=== PATIENT | male | born 1960 | race Caucasian/White ===

== ENCOUNTER → 2022-05-10 | Outpatient (CLI) | payer OTHER, SELFPAY ==
--- NOTE | 2022-05-10 | ASPOS_PTH ---
PATIENT: LEATHA ARENAS LOC: [facility] U#:[id number] AGE/SX: 61/M ROOM: RE05/10/[address]: Dr. Trevon Begum MD : 1960 BED: DIS: 05/10/2022 SPEC #: [id number] RECD: 05/10/22 10:58 STATUS: ROBB REJuan #: [id number] VIVIANA: 05/10/22 00:[address]: Trevon Begum DEPT: CYTOLOGY RECD BY: Blaine Suazo ENTERED: 05/10/22 10:58 SP TYPE: ASP HERE OTHR DR: Dr. Jonny De MD Tissues: Neck, NOS Procedures: Surgery Specimen Level IV Cytology Other Fine Needle Asp on Site HEADER OPERATION: Fine needle aspiration right neck mass PRE-OP DIAGNOSIS: Right neck mass TISSUE SUBMITTED: Right neck mass DIAGNOSIS CYTOLOGY Fine needle aspiration, right neck mass (smears and cell block): Macrophages consistent with benign cyst contents. See comment. AM:bell 05/11/2022 COMMENT The specimen is evaluated at the time of FNA by Dr. Ahumada. Immediate Evaluation = Macrophages consistent with benign cyst contents. Rare benign epithelial cells with associated lymphocytes are seen in sections of the cell block. A branchial cleft is favored. Clinical correlation is suggested. Case has been reviewed in consultation with Dr. Rawls who concurs with the above diagnosis. IDC:SJ. CYTOLOGY STUDY Slides are reviewed. CYTOLOGY GROSS Received is 5 ml of clear yellow fluid labeled with the patient's name, and designated right neck mass. Three imprints and two paps are made from the submitted fluid and the rest is added to CytoLyt for cell block preparation. Submitted for cytology study. / AM:bell 05/10/2022 TC:5 CPT: 30185, 52140, 78990, 83705
== END | disposition home or self-care (01) ==
LOC: LAB 09:11
PROVIDERS: PCP Family Medicine; Referring Provider Otolaryngology Otolaryngology/Facial Plastic Surgery; Visit Provider Otolaryngology Otolaryngology/Facial Plastic Surgery
DX: R22.1 Localized swelling, mass and lump, neck (principal)
CPT/HCPCS: 10021; 88161; 88305

== ENCOUNTER → 2022-07-05 | Outpatient (CLI) | payer OTHER, SELFPAY ==
--- NOTE | 2022-07-05 14:50 | ST.MBS ---
Modified Barium Swallow - Patient Information Study Date: 07/05/22 Study Time: 13:00 Direct Billable Minutes: 65 Total Minutes procedure & reportin Diagnosis: R tonsillar SCC (C09.9) Referring Physician: Bruno Li Reason for Referral: Objectively assess swallow function, risk for aspiration, and determine recommendations for least restrictive diet textures and compensatory strategies to improve safety of swallow. 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 Radiation is planned for 6-7 weeks, likely beginning on 07/11/2022 with chemotherapy, as well. He is planned for PEG tube and port placement 07/07/2022. Current Diet Ordered: Regular textures / Thin liquids Dentition: WNL Mental Status: WNL Respiratory Status: Oxygenating on Room Air - Penetration-Aspiration Scale Penetration-Aspiration Scale: OBJECTIVE ASSESSMENT OF SWALLOW FUNCTION (QUANTITATIVE ? PER TRIAL): PENETRATION / ASPIRATION SCALE (YU): 1 = does not enter airway 2 = enters airway/above vocal folds/ejected 3 = enters airway/above vocal folds/not ejected 4 = enters airway/contacts vocal folds/ejected 5 = enters airway/contacts vocal folds/not ejected 6 = enters airway/below vocal folds/ejected 7 = enters airway/below vocal folds/not ejected despite effort 8 = enters airway/below vocal folds/no effort VIDEOFLOROSCOPIC SCALE SCORE (YU): Grade I = aspiration of material that has penetrated into the laryngeal vestibule, intact cough reflex Grade II = aspiration < 10 % of the bolus, intact cough reflex Grade III = aspiration of < 10 % of the bolus, reduced cough reflex or aspiration of > 10 % of the bolus, intact cough reflex Grade IV = aspiration of > 10 % of the bolus, reduced cough reflex - Penetration-Aspiration Scale Score Thin Liquid via teaspoon Result: 1= does not enter airway Thin Liquid via teaspoon Trial 2 Result: 4= enters airway/contacts vocal folds/ejected Thin Liquid via small single sip from cup Result: 1= does not enter airway Thin Liquid via sequential sips from cup Result: 1= does not enter airway [place] Thick Liquid via small single sip from cup Result: 1= does not enter airway Honey Thick Liquid via small single sip from cup Result: 1= does not enter airway Pudding via teaspoon with esophageal screen Result: 1= does not enter airway Thin Liquid via single sip from straw with esophageal screen Result: 1= does not enter airway 1/2 Cookie Result: 1= does not enter airway - Oral Phase Labial Seal: No Labial Escape Tongue Control During Bolus Hold: Cohesive bolus between tongue to palatal seal Bolus Preparation/Mastication: Timely and efficient chewing and mashing Bolus Transport/Lingual Motion: Brisk tongue motion Oral Residue: Residue collection on oral structures - cookie - Pharyngeal Phase Initiation of Pharyngeal Swallow: Bolus head in valleculae Soft Palate Elevation: No bolus between soft palate and pharyngeal wall Laryngeal Elevation: Partial superior movement thyroid cart/partial apprx aryt-epig petiole Anterior Hyoid Excursion: Partial anterior movement Epiglottic Movement: Complete inversion Laryngeal Vestibule Closure at Height of Swallow: Incomplete; narrow column of air/contrast in laryngeal vestibule Pharyngeal Stripping Wave: Present - complete Pharyngoesophageal Segment Opening: Parital distension and partial duration; parital obstruction of flow Tongue Base Retraction: Trace column of contrast between tongue base & post. pharyngeal wall Pharyngeal Residue: Trace residue within or on pharyngeal structures - Esophageal Phase Esophageal Clearance: Esophageal retention w/ retrograde flow below pharyngoesophageal seg. - trace retrograde flow of honey thick liquids, esophageal retention of pudding - Diagnosis/Impression Diagnosis: Mild pharyngeal phase dysphagia (R13.13) Impression: The oral phase is primarily marked by... -Mild cookie residue after the swallow, which he independently cleared with use of second swallow. The pharyngeal phase is primarily marked by... -Mildly decreased airway closure during the swallow due to decreased anterior hyoid excursion and decreased laryngeal elevation. No aspiration observed during the study. Trace laryngeal penetration to the vocal folds with full ejection with second trial of thin liquids by tsp. -Mildly decreased UES opening/duration. Only trace pharyngeal residues during the swallow. The esophageal phase is primarily marked by... -Esophageal retention of pudding in mid esophagus, which improved when provided thin liquid wash. -Minimal retention of honey thickened liquid in upper esophagus with trace retrograde flow through the upper esophageal sphincter. - Recommendations Diet: Regular Textures, Thin Liquids Compensatory Strategies: Small Bites, Small Sips, Slow Rate, Alternate bites/solids and sips/liquids, Sitting upright, Remain sitting upright for 30 minutes after PO intake Recommend Repeat Modified Barium Swallow: Yes - 3 months s/p radiation to monitor risk for worsening dysphagia s/p radiation treatment Need for Skilled Speech Therapy Services: Yes Comment: Will recommend the patient for continued outpatient dysphagia therapy to address mild deficits in pharyngeal swallow function. Will recommend the patient for oropharyngeal strengthening to laryngeal elevation, hyoid excursion, and duration of UES opening (CTAR, Jaimee, effortful breath hold and swallow). The patient would benefit from education re: recommended compensatory strategies. He also would benefit from ongoing assessment of diet tolerance and aspiration risk during radiation treatment. Education Completed: 1. Described result of evaluation., 7. Pt requires further education on strategies & risks. - Status Active ST Patient: Active - Contact Information [facility] Speech Therapy:: Nikki Alcantraa M.A. [facility] Speech-Language Pathologist [facility] [address] [place] [address] [email or web address] [phone] 07/05/22 15:15
== END | disposition home or self-care (01) ==
LOC: RAD 13:00
PROVIDERS: PCP Family Medicine; Referring Provider Radiology Radiation Oncology; Visit Provider Radiology Radiation Oncology
DX: C09.9 Malignant neoplasm of tonsil, unspecified (principal)
CPT/HCPCS: 74230; 92611

== ENCOUNTER 2022-07-07 07:34 | Day surgery (SDC) | payer OTHER, SELFPAY ==
[2022-07-07] VITALS (7 sets, daily range): BP systolic 92–150; BP diastolic 64–74; PULSE 74–86; RESP 16–18; TEMP 36.2–37; O2SAT 92–98; BMI 35.9
[2022-07-07] MEDS: Lactated Ringers 1,000 ML 15 ML IV (08:13)
--- NOTE | 2022-07-07 08:19 | HP.PCM_ITS ---
History and Physical Date of Admission: 07/07/22 Date of Service:? 06/28/22 MR#: [id number] Acct: [id number] Name:? LEATHA ARENAS Rep #: [id number] : 1960 ? ? Provider: Dr. Shannon Drew MD Age/Sex:? 62/M ? ? Location: [facility] Status: Signed Intake Vital Signs ? 06/28/2209:06 Height 5 ft 11 in Weight: 264 lb BMI 36.8 BP 165/91 H Blood Pressure Location Rt brachial Position Sitting Respiration 17 Pulse 77 Pulse Source Monitor Temp 97.4 F L Temp Source Temporal Pulse Oximetry (%) 98 Oxygen Delivery Method room air Intake Visit Reasons:?PORT & PEG PLACEMENT Chief Complaint: Port & Peg Placement [place] Required: No Is patient in pain?: No Allergies No Known Allergies Allergy (Unverified 06/28/22 09:10) Medications ketoconazole 2 % shampoo 1 applic topical 2XW 06/24/22 [History Confirmed 06/05 01/23] losartan 100 mg tablet 100 mg PO DAILY 06/24/22 [History Confirmed 06/28/22] meloxicam 7.5 mg tablet 7.5 mg PO DAILY 06/24/22 [History Confirmed 06/28/22] spironolactone 25 mg tablet 25 mg PO DAILY 06/24/22 [History Confirmed 06/28/22] acetaminophen 325 mg capsule (Tylenol) 325 mg PO Q6H PRN 06/28/22 [History Confirmed 06/28/22] PFSH Medical History? COVID HTN (hypertension) Prostate cancer Psoriasis Surgical History? H/O hernia repair H/O knee surgery Family History?(Updated 06/28/22 @ 09:05 by Margaux Monday) Father Heart disease Hypertension High cholesterolMother CancerSister Cancer ?? ? skin Seizures Social History? household members:? spouse and children number of children:? 2 current occupational status:? 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 No pets and animals:? Yes Smoking Status:? Former smoker alcohol intake:? current alcohol intake frequency: holidays/special occasions only substance use type:? does not use HPI HPI Surgical H&P: Yes HPI: 62-year-old male presents for port and PEG placement.? Patient was diagnosed with a right tonsillar squamous cell carcinoma.? Patient is planning to get chemo and radiation starting 07/11/2022.? Patient currently has a large right upper neck mass. ROS General General: No weight change, appetite, fatigue, colon cancer or breast cancer HEENT HEENT: No difficulty swallowing, eye injury, eye surgery, swollen glands or hoarseness Endo Endocrine: No thyroid disease, diabetes mellitus, thyroid cancer, Hair loss, heat intolerance or cold intolerance Skin Skin: Yes rash; No changing moles Musc Musculoskeletal: No back problems, arthritis, rheumatoid arthritis, gout or joint pain Cardio Cardiovascular: Yes high blood pressure; No murmur, pacemaker, heart disease, atrial fibrillation, heart attack, heart stent, palpitations, shortness of breat with exertion or chest pain Psych Psychiatric: No depression, anxiety or hearing voices Resp Respiratory: No shortness of breath, Yes sleep apnea, Yes cough, No COPD, No asthma, No emphysema and No wheezing Gastro Gastrointestinal: No abdominal pain, No nausea or vomiting, No diarrhea, No constipation, No blood in stool, No acid reflux, No hemorrhoids, No ulcers, No gallbladder problem and No black,tarry stools Taye Hematologic: No blood thinners, No blood disorders, No bleeding, No anemia and No blood clots Neuro Neurologic: No numbness and No tingling Exam Const General: cooperative, healthy appearing and no acute distress [facility] Head: normal to inspection Neck Other: Large right upper neck mass, mass does not extend down to above the clavicle where I would plan for incision to access internal jugular. Chest Other: Palpation of upper chest normal.? Resp Effort & Inspection: normal respiratory effort Cardio Rate: regular rate GI Inspection: non-distended Palpation: soft, no guarding, no hernias and nontender Skin Other: Patient does have psoriasis lesions on his chest/abdomen. Neuro General: patient oriented x3 Extrem General: no clubbing, cyanosis or edema Psych Affect: normal affect Assessment and Plan Assessment and Plan (1) Encounter for fitting and adjustment of vascular catheter: ?Status:?Acute (2) Malnutrition: ?Status:?Acute (3) Right tonsillar squamous cell carcinoma: ?Status:?Acute Plan I have discussed above with the patient- Port-a-Cath placement. Patient has been counseled as to the risks/benefits of the procedure. I have explained the risks of the surgery, including but not limited to: infection, bleeding, injury to any blood vessels/nerves, injury to lungs (such as pneumothorax or hemothorax and need for chest tube), not having any access, nonfunctioning of port due to thrombosis, infection of port, etc.? the patient understands and agrees to proceed. I have answered all the patient's questions to the patient?s satisfaction and the patient has no further questions. I have discussed the above with the patient. I have offered the patient EGD with PEG placement I have explained the risks/benefits of the procedure and described the procedure.? I have discussed the risks with the patient, including but not limited to:? infection, bleeding, perforation of the GI tract requiring emergency surgery, inability to complete the procedure, injury to any internal organs, complications of anesthesia, etc. - the patient understands and agrees to proceed. I have answered all the patient's questions to the patient's satisfaction and the patient has no further questions. Shannon Drew M.D. Pager: [phone] [facility] [address] [place] [address], [address] [place] [address] Office: [phone] Coding Level of Care Code Off vis,new,level 3 Diagnoses Encounter for fitting and adjustment of vascular catheter? Z45.2 Malnutrition? E46 Right tonsillar squamous cell carcinoma? C09.9 06/28/22 0935 <Electronically signed by Shannon Drew MD> Date Shannon Drew MD
[2022-07-07] MEDS: Bupivacaine 0.25%-Epi/Pf 1:200,000 10 ML (09:30)
--- NOTE | 2022-07-07 09:56 | RAD_ITS ---
STUDY: X-RAY CHEST REASON FOR EXAM: Male, 62 years old. Port -- pacu TECHNIQUE: Single AP portable view of the chest. COMPARISON: None. FINDINGS: A right-sided margo catheter has been placed. The tip is in the midportion of the superior vena cava. EKG electrodes are seen. The lungs are clear and expanded. There is no demonstrated pleural abnormality. Normal size heart. Normal mediastinum and maría elena. Normal visualized pulmonary arteries. Normal visualized aortic arch and descending thoracic aorta. Normal visualized thoracic spine. Normal visualized ribs, clavicles, and shoulders. There is no demonstrated abnormality of the visualized soft tissue structures of the upper abdomen. RAD/CXR for Line Placement IMPRESSION: The tip of the right portacatheter is in the midportion of the superior vena cava. Electronically Signed: Yong Carpio MD at 10:39 EDT ,
--- NOTE | 2022-07-07 09:57 | PCM.OPRPT ---
Report of Operation Date of Procedure: 07/07/22 Pre-Operative Diagnosis: Z45.2, tonsillar squamous cell carcinoma Post-Operative Diagnosis: Same Surgery/Procedure Performed:: 1. Insertion of right IJ Port-A-Cath 2. Use of fluoroscopy 3. Use of ultrasound. Surgeon: Shannon Drew Type of Anesthesia: Local MAC Anesthesiologist: Leland Horn Special Medications: Ancef 3 g IV x1 Specimen's removed: None Estimated Blood Loss (mL): < 10 cc Description of Procedure: After informed consent was given, the patient was brought to the operating room and placed in the supine position. Appropriate time out protocol was followed. Patient was then given IV conscious sedation for anesthesia. The patient's right upper chest and neck were then prepped with a surgical skin preparation and sterile surgical drapes were placed. After proper landmarks were ascertained, the skin at the upper right chest area was then infiltrated with 0.25% Marcaine with epinephrine. A needle trocar was then inserted into the right internal jugular vein with ultrasound guidance-multiple vessels were viewed with u/s and the right IJ was chosen-- and there was good aspiration of venous blood. A wire was then threaded into the needle trocar and this was visualized under fluoroscopy to ensure that the wire was in the superior vena cava. Once this was done, then the needle trocar was removed. A small skin madai was made with an 11 blade knife at the wire entrance site. The dilator with the introducer sheath attached was then placed over the wire into the right internal jugular vein via the Seldinger technique and this was visualized under fluoroscopy. The dilator and sheath were in proper position as visualized by fluoroscopy. A subcutaneous pocket was then created caudad to the catheter insertion site. A transverse skin incision was made after the skin and subcutaneous tissues were infiltrated with local anesthetic. Blunt dissection was then used to create a space large enough for placement of the subcutaneous port. The catheter was then tunneled into the subcutaneous pocket. The wire and dilator were then removed. The catheter was then threaded into the introducer sheath and was positioned with its tip at the junction of the superior vena cava and the right atrium as visualized under fluoroscopy. The excess catheter was transected. The catheter was then attached to the subcutaneous port using manufacturers guidelines. The catheter was flushed with a heparin saline mixture prior to placement. Hemostasis was carefully controlled with electrocautery. The port was sutured to the subcutaneous fascia using 2-0 Vicryl suture at two sites. The port was then placed in the subcutaneous pocket. The incision were reapproximated with interrupted subdermal 3-0 vicryl sutures. The skin was reapproximated with 3-0 nylon suture in a interrupted fashion. Steristrips were used for reinforcement of the skin closure at IJ insertion site and a sterile opsite dressings were applied. The patient tolerated the procedure well. Grafts/Implants Used: Bard PowerPort isp M.R.I. 6Fr Lot [id number] [id number] Complications none
--- NOTE | 2022-07-07 10:00 | DCINST_ITS ---
Discharge Instructions Procedure Port-A-Cath Diet Discharge Diet: Light diet - advance as tolerated Activity May shower in (days): 5 (Keep port site clean and dry x5 days. Neck incision okay to get wet after 1 day. Okay to lower shower and upper sponge bath. OR okay to taper off port site with a Ziploc bag to shower) Lifting Restrictions: No lifting > 15 pounds for 3 days with the arm on the side of the port Dressing / Incision Call your doctor if your incision/area has: Continuous Slow Oozing, Sudden Increased Bleeding, Increased Pain/ Swelling, Increased Redness, Foul Smelling Discharge and Swelling at the incision site Call your doctor if you observe: Fever of 101 or Higher Change Dressing in: 2 days Additional Dressing/Incision Instructions:: Clean PEG site daily. Flush with tap water daily. Follow Up Care Please Follow Up With: Shannon Drew MD When: In 10 days for permanent suture removal?call office for appointment Test Results: Test results from this visit will be discussed in further detail at your follow- up appointment, if applicable. Discharge Plan Admission Attending Provider: Shannon Drew Primary Care Provider: Jonny De Discharge Orders/Prescriptions Prescriptions: New oxycodone-acetaminophen 5-325 mg tablet 1 - 2 tab PO Q6H PRN (Reason: pain) 3 Days Qty: 10 0RF Continued ketoconazole 2 % shampoo 1 applic topical 2XW losartan 100 mg tablet 100 mg PO DAILY spironolactone 25 mg tablet 25 mg PO DAILY acetaminophen [Tylenol] 325 mg capsule 325 mg PO Q6H PRN (Reason: Pain) lidocaine-prilocaine 2.5-2.5 % cream 1 applic topical ONCE PRN (Reason: port acces) 30 Days Qty: 30 2RF ondansetron 8 mg tablet,disintegrating 8 mg PO Q8H PRN (Reason: nausea and vomiting) Qty: 30 2RF prochlorperazine maleate 10 mg tablet 10 mg PO Q6H PRN (Reason: nausea and vomiting) Qty: 30 2RF Referrals / Follow Up: Jonny De MD [Primary Care Provider] - Disposition Disposition (needs filled in before D/C Order can be placed): Home, Self Care
--- NOTE | 2022-07-07 10:11 | OP.CCLET_ITS ---
07/07/2022 Jonny De Md Re : Upper GI endoscopy procedure for Mars Zamorar Santino This procedure was performed on July. My impressions and recommendations are as follows: Impressions : - Z-line variable, 40 cm from the incisors. - Multiple gastric polyps. - Normal examined duodenum. - An externally removable PEG placement was successfully completed. - No specimens collected. Recommendations : - Discharge patient to home. - Resume previous diet. - Please follow the post-PEG recommendations including: flush PEG daily with 60 ml water and clean site with soap and water daily and dry thoroughly. - Continue present medications. My findings are described in the full procedure note, which is enclosed. If I can be of further assistance, please feel free to contact me at Doctor phone number(s): , Work: . Sincerely, MD Shannon Ward MD 07/07/2022 10:10:56 AM This report has been signed electronically.
--- NOTE | 2022-07-07 10:11 | OP.EGD_ITS ---
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 Complications: No immediate complications. Procedure: Pre-Anesthesia Assessment: - Prior to the procedure, a History and Physical was performed, and patient medications and allergies were reviewed. The patient's tolerance of previous anesthesia was also reviewed. The risks and benefits of the procedure and the sedation options and risks were discussed with the patient. All questions were answered, and informed consent was obtained. Prior Anticoagulants: The patient has taken no previous anticoagulant or antiplatelet agents. ASA Grade Assessment: Per anesthesia. After reviewing the risks and benefits, the patient was deemed in satisfactory condition to undergo the procedure. After obtaining informed consent, the endoscope was passed under direct vision. Throughout the procedure, the patient's blood pressure, pulse, and oxygen saturations were monitored continuously. The Endoscope was introduced through the mouth, and advanced to the second part of duodenum. The upper GI endoscopy was accomplished without difficulty. The patient tolerated the procedure well. Scope In: 9:40:54 AM Scope Out: 9:55:45 AM Total Procedure Duration Time 0 hours 14 minutes 51 seconds Findings: The Z-line was variable and was found 40 cm from the incisors. Multiple less than 5 mm semi-sessile polyps with no bleeding and no stigmata of recent bleeding were found in the gastric fundus. The examined duodenum was normal. The cardia and gastric fundus were normal on retroflexion. The patient was placed in the supine position for PEG placement. The stomach was insufflated to appose gastric and abdominal servin. A site was located in the body of the stomach with good transillumination for placement. The abdominal wall was marked and prepped in a sterile manner. The area was anesthetized with 3 mL of 0.5% lidocaine. The trocar needle was introduced through the abdominal wall and into the stomach under direct endoscopic view. A snare was introduced through the endoscope and opened in the gastric lumen. The guide wire was passed through the trocar and into the open snare. The snare was closed around the guide wire. The endoscope and snare were removed, pulling the wire out through the mouth. A skin incision was made at the site of needle insertion. The externally removable 20 Fr EndoVive Safety gastrostomy tube was lubricated. The G-tube was tied to the guide wire and pulled through the mouth and into the stomach. The trocar needle was removed, and the gastrostomy tube was pulled out from the stomach through the skin. The external bumper was attached to the gastrostomy tube, and the tube was cut to remove the guide wire. The final position of the gastrostomy tube was confirmed by relook endoscopy, and skin marking noted to be 5 cm at the external bumper. The final tension and compression of the abdominal wall by the PEG tube and external bumper were checked and revealed that the bumper was loose and lightly touching the skin. The feeding tube was capped, and the tube site cleaned and dressed. Impression: - Z-line variable, 40 cm from the incisors. - Multiple gastric polyps. - Normal examined duodenum. - An externally removable PEG placement was successfully completed. - No specimens collected. Recommendation: - Discharge patient to home. - Resume previous diet. - Please follow the post-PEG recommendations including: flush PEG daily with 60 ml water and clean site with soap and water daily and dry thoroughly. - Continue present medications. Procedure Code(s): --- Professional --- 82884, Esophagogastroduodenoscopy, flexible, transoral; with directed placement of percutaneous gastrostomy tube Diagnosis Code(s): --- Professional --- K22.8, Other specified diseases of esophagus K31.7, Polyp of stomach and duodenum Z43.1, Encounter for attention to gastrostomy D37.05, Neoplasm of uncertain behavior of pharynx R63.3, Feeding difficulties CPT copyright 2017 [employer]. All rights reserved. The codes documented in this report are preliminary and upon wrinkle chaser review may be revised to meet current compliance requirements. MD Shannon Ward MD 07/07/2022 10:10:56 AM This report has been signed electronically. Number of Addenda: 0 Note Initiated On: 07/07/2022 9:39 AM
--- NOTE | 2022-07-07 10:28 | SUR.PHASEI ---
dr calvert viewed xray, ok to eat and drink
== END 2022-07-07 11:15 | disposition home or self-care (01) ==
LOC: SDC 07:34 → AC 07:35
PROVIDERS: PCP Family Medicine; Referring Provider Family Medicine; Visit Provider Surgery
PROC: (CPT 36561; principal; 2022-07-07 08:30)
PROC: 0DJ08ZZ Inspection of Upper Intestinal Tract, Via Natural or Artificial Opening Endoscopic (ICD-10-PCS; CPT 43235; principal; 2022-07-07 09:40)
DX: Z45.2 Encounter for adjustment and management of vascular access device (principal); Z43.1 Encounter for attention to gastrostomy; E46 Unspecified protein-calorie malnutrition; C09.9 Malignant neoplasm of tonsil, unspecified; K31.7 Polyp of stomach and duodenum; K22.89 Other specified disease of esophagus; I10 Essential (primary) hypertension; E78.00 Pure hypercholesterolemia, unspecified; Z68.36 Body mass index [BMI] 36.0-36.9, adult; Z79.899 Other long term (current) drug therapy; Z86.16 Personal history of COVID-19; Z87.891 Personal history of nicotine dependence
CPT/HCPCS: 36561; 00532; 43246; 71045; 77001; 97802; J7120; J2405

== ENCOUNTER 2022-09-12 19:46 | Emergency (ER) | payer OTHER, SELFPAY ==
[2022-09-12 19:47] VITALS: BP 168/99; PULSE 117; RESP 18; TEMP 35.9; O2SAT 98; BMI 31.4
--- NOTE | 2022-09-12 22:17 | EX.ED.DYSGE1 ---
HPI History of Present Illness Chief Complaint: Edema Informant: patient Onset/Context/Timing Onset: Today Context: Gradual Onset Timing: Continuous Quality: Sore and swollen Location: throat Current Severity: Moderate Maximum Severity: Moderate Worsened by: Coughing swallowing Relieved by: Nothing in particular Associated Symptoms Associated Symptoms: Cold symptoms for the past week Narrative Narrative: Patient has had chemotherapy and radiation for tonsillar cancer. Masses on the right. He has chronically increased secretions and occasional gagging and vomiting as a result of the mass and treatments. That is not new. However, his got sick with a cold, and subsequently after couple days he got the symptoms, he has now been sick for 1 week. Neither one of them have sought evaluation or testing for this. He states today, he started having swelling in his throat that is making it difficult for him to swallow and breathe although he is able to do both and relatively well. At baseline he is drinking liquids and not eating, he has a PEG food and is getting supplemental feeds through that. He is still able to drink fluids. He has myalgias, no dyspnea that he feels is coming from his chest, no fevers or chills. 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 Sleep apnea Tinnitus of both ears Wears glasses Home Medications ketoconazole 2 % shampoo 1 applic topical 2XW 06/24/22 [History Last Taken Unknown] losartan 100 mg tablet 100 mg PO DAILY 06/24/22 [History Last Taken 07/07/22] spironolactone 25 mg tablet 25 mg PO DAILY 06/24/22 [History Last Taken 07/06/22] acetaminophen 325 mg capsule (Tylenol) 325 mg PO Q6H PRN Pain 06/28/22 [History Last Taken 07/06/22] lidocaine-prilocaine 2.5 %-2.5 % topical cream 1 applic topical ONCE PRN port acces 30 days #30 grams 06/30/22 [Rx Last Taken Unknown] ondansetron 8 mg disintegrating tablet 8 mg PO Q8H PRN nausea and vomiting #30 tabs 06/30/22 [Rx Last Taken Unknown] prochlorperazine maleate 10 mg tablet 10 mg PO Q6H PRN nausea and vomiting #30 tabs 06/30/22 [Rx Last Taken Unknown] MAGIC MOUTH WASH (BMX) 180 mL suspension 15 ml PO .qid PRN pain #180 mL 07/20/22 [Rx Last Taken Unknown] docusate sodium 100 mg capsule (Dulcolax Stool Softener (docusate)) 200 mg PO DAILY 08/22/22 [History Last Taken Unknown] guaifenesin 600 mg tablet, extended release 12 hr (Mucinex) 600 mg PO Q12H PRN 08/22/22 [History Last Taken Unknown] nystatin 100,000 unit/mL oral suspension 5 ml PO 4XD 14 days #280 mL 08/24/22 [Rx Last Taken Unknown] silver sulfadiazine 1 % topical cream 1 applic topical BID #85 grams 08/24/22 [Rx Last Taken Unknown] oxycodone 5 mg capsule 5 mg PO Q6H PRN pain 7 days #30 caps 08/26/22 [Rx Last Taken Unknown] prednisone 20 mg tablet 40 mg PO QHS #10 TABLETS 09/12/22 [Rx Last Taken Unknown] Allergy/AdvReac Type Severity Reaction Status Date / Time No Known Allergies Allergy Verified 08/31/22 14:20 Family History Father Heart disease Hypertension High cholesterol Mother Cancer Sister Cancer skin Seizures Surgical History H/O hernia repair H/O knee surgery Social History household members: spouse and children number of children: 2 current occupational status: employed current occupation: IT current occupational exposures/hazards: No pets and animals: Yes Smoking Status: Former smoker alcohol intake: current alcohol intake frequency: holidays/special occasions only substance use type: does not use ROS ROS ED Constitutional Constitutional ED: Denies chills or fever(s) ENT ENT ED: Reports as per HPI, nasal congestion, rhinorrhea, sore throat and throat swelling; Denies sinus pain or sinus pressure Cardiovascular Cardiovascular: Denies chest pain or palpitations Respiratory/Chest Respiratory/Chest: Reports cough; Denies dyspnea Gastrointestinal Gastrointestinal: Reports as per HPI and vomiting; Denies abdominal pain, diarrhea or nausea Genitourinary Genitourinary ED: Denies dysuria or hematuria Musculoskeletal Musculoskeletal: Reports myalgias; Denies neck pain Integumentary Denies abscess or rash Neurologic Neurologic: Denies headache(s), paresthesias or weakness Psychiatric Psychiatric: Denies depression or suicidal thoughts Endocrine Endocrinology: Denies polydipsia or polyuria EXAM Physical Exam Const Vital Signs: 09/12/22 19:47 Temperature 96.7 F L Temperature Source Temporal Pulse Rate 117 H Respiratory Rate 18 Blood Pressure 168/99 H Blood Pressure Mean 122 Pulse Ox 98 Oxygen Delivery Method Room Air Positive well nourished and well developed General Appearance ED: well developed and NAD HEENT Reports moist mucous membranes HEENT Narrative: No trismus. Posterior oropharynx clear without any obvious asymmetry, he does have some mild fullness in the right submandibular area that he states is similar to usual. Normal tongue without elevation or sublingual edema. No stridor. Patient is able to recline back in bed laying his head back without any stridor, hot potato voice, or objective dyspnea. Speaking in full sentences and well-appearing with occasional nonproductive coughing. normocephalic and atraumatic Throat: Negative for posterior oropharynx abnormal Eyes PERRL and EOMs intact bilaterally Neck no lymphadenopathy, supple and no meningeal signs Chest Wall inspection of chest normal and palpation of chest normal Resp normal respiratory effort and clear to auscultation bilaterally Cardio no murmurs Rate: regular rate; Negative for tachycardic Rhythm: regular rhythm GI normal to inspection, nondistended, normoactive bowel sounds and non-tender GI Narrative: Slight amount of minor erythema around PEG insertion site without any purulent discharge or tenderness. Gauze on the area, scant amount of tube feed on it. Neuro oriented x3, CN's II-XII intact bilaterally and no sensory deficits noted Sensorium / Orientation: alert Motor Exam: strength 5/5 throughout Psych mental status grossly normal Skin no rashes or lesions noted Lesions: no lesions Rashes: no rashes MDM MDM MDM Narrative Medical decision making narrative: Send patient for COVID and influenza swabs, they both returned negative. I think putting him on steroids for this would be reasonable, he was given Solu-Medrol here 125 mg IV, and a dose of Benadryl while we waited for the swabs to come back. On reevaluation he did not notice a major difference in the swelling but he is condition has not worsened and I believe he is stable for discharge and not at risk of impending airway impingement/closure. I discussed this with him and his significant other and they are in agreement, we discussed reasons to return, prescribed him a 5-day burst of prednisone 40 mg daily after tonight's dose of Solu-Medrol, and he is comfortable with that overall plan. Discharge Plan Triage Chief Complaint: Edema Other Complaint: General Illness ED Provider: Mohinder Yoo Dx/Rx/DC Orders Clinical Impression: Viral URI with cough, Right tonsillar squamous cell carcinoma, Mucositis due to radiation therapy, Swollen throat Instructions: ED URI, Viral, No Abx (Adult) Prescriptions: New prednisone 20 MG tablet 40 mg PO QHS Qty: 10 0RF No Action ketoconazole 2 % shampoo 1 applic topical 2XW losartan 100 mg tablet 100 mg PO DAILY spironolactone 25 mg tablet 25 mg PO DAILY acetaminophen [Tylenol] 325 mg capsule 325 mg PO Q6H PRN (Reason: Pain) lidocaine-prilocaine 2.5-2.5 % cream 1 applic topical ONCE PRN (Reason: port acces) 30 Days Qty: 30 2RF ondansetron 8 mg tablet,disintegrating 8 mg PO Q8H PRN (Reason: nausea and vomiting) Qty: 30 2RF prochlorperazine maleate 10 mg tablet 10 mg PO Q6H PRN (Reason: nausea and vomiting) Qty: 30 2RF MAGIC MOUTH WASH (BMX) 180 mL suspension 15 ml PO .qid PRN (Reason: pain) Qty: 180 6RF Rx Instructions: diphenhydramine 12.5 mg/5 mL oral liquid 60 mL; aluminum-mag hydroxide-simethicone 400 mg-400 mg-40 mg/5 mL oral susp 60 mL; Lidocaine Viscous 2 % mucosal solution 60 mL; Per 180 mL guaifenesin [Mucinex] 600 mg tablet extended release 12hr 600 mg PO Q12H PRN docusate sodium [Dulcolax Stool Softener (dss)] 100 mg capsule 200 mg PO DAILY silver sulfadiazine 1 % cream 1 applic topical BID Qty: 85 1RF Rx Instructions: apply a 1.5 mm thickness to moist peeling twice daily nystatin 100,000 unit/mL suspension 5 ml PO 4XD 14 Days Qty: 280 2RF Rx Instructions: swish and swallow oxycodone 5 mg capsule 5 mg PO Q6H PRN (Reason: pain) 7 Days Qty: 30 0RF Rx Instructions: 5mg po q6h PRN Primary Care Provider: Jonny De Referrals: Oncologist, your [Other] - 1-2 Days if not improving (or may return to ER if worsening) Jonny De MD [Primary Care Provider] - Disposition Disposition: Home, Self Care
[2022-09-12] MEDS: DiphenhydrAMINE 50 MG/ML Syringe 25 MG IV (22:21)
[2022-09-12] MEDS: MethylPREDNISolone 125 MG/2 ML Vial IV (22:21)
== END 2022-09-12 23:18 | disposition home or self-care (01) ==
PROVIDERS: Emergency Provider Emergency Medicine; PCP Family Medicine; Visit Provider Emergency Medicine
DX: J06.9 Acute upper respiratory infection, unspecified (principal); Z93.1 Gastrostomy status; C09.9 Malignant neoplasm of tonsil, unspecified; K12.32 Oral mucositis (ulcerative) due to other drugs; T45.1X5A Adverse effect of antineoplastic and immunosuppressive drugs, initial encounter; F10.90 Alcohol use, unspecified, uncomplicated; Z86.16 Personal history of COVID-19; Z87.891 Personal history of nicotine dependence
CPT/HCPCS: 87428; 96374; 96375; 99283; A4216

== ENCOUNTER → 2022-11-15 | Outpatient (CLI) | payer OTHER, SELFPAY ==
--- NOTE | 2022-11-15 13:39 | ST.MBS ---
Modified Barium Swallow - Patient Information Study Date: 11/15/22 Study Time: 13:00 Direct Billable Minutes: 82 Total Minutes procedure & reportin Diagnosis: R tonsillar squamous cell carcinoma (C09.9) Referring Physician: Clifford Zhou Reason for Referral: Objectively assess swallow function, assess risk for aspiration, and determine recommendations for least restrictive diet textures and compensatory strategies to improve safety of swallow. 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 From 07/13/2022 ? 08/25/2022 he completed definitive chemoradiation. PEG tube was placed 07/07/2022. He followed with OP ST during and after chemoradiation treatment to address pharyngeal dysphagia. MBSS 07/05/2023 recommended Regular textures / Thin liquids with use of aspiration precautions. Patient has not required use of PEG tube in 23 days and reports tolerating Regular textures / Thin liquids at home. At times, he senses retention of foods in upper esophagus. Current Diet Ordered: Regular textures / Thin liquids Dentition: Natural Teeth Mental Status: WNL Respiratory Status: Oxygenating on Room Air - Penetration-Aspiration Scale Penetration-Aspiration Scale: OBJECTIVE ASSESSMENT OF SWALLOW FUNCTION (QUANTITATIVE ? PER TRIAL): PENETRATION / ASPIRATION SCALE (YU): 1 = does not enter airway 2 = enters airway/above vocal folds/ejected 3 = enters airway/above vocal folds/not ejected 4 = enters airway/contacts vocal folds/ejected 5 = enters airway/contacts vocal folds/not ejected 6 = enters airway/below vocal folds/ejected 7 = enters airway/below vocal folds/not ejected despite effort 8 = enters airway/below vocal folds/no effort VIDEOFLOROSCOPIC SCALE SCORE (YU): Grade I = aspiration of material that has penetrated into the laryngeal vestibule, intact cough reflex Grade II = aspiration < 10 % of the bolus, intact cough reflex Grade III = aspiration of < 10 % of the bolus, reduced cough reflex or aspiration of > 10 % of the bolus, intact cough reflex Grade IV = aspiration of > 10 % of the bolus, reduced cough reflex - Penetration-Aspiration Scale Score Thin Liquid via teaspoon Result: 1= does not enter airway Thin Liquid via teaspoon Trial 2 Result: 1= does not enter airway Thin Liquid via large single sip from cup Result: 1= does not enter airway [place] Thick Liquid via small single sip from cup Result: 1= does not enter airway Pudding via teaspoon with esophageal screen Result: 1= does not enter airway Thin Liquid via sequential sips from straw with esophageal screen Result: 1= does not enter airway 1/2 Cookie Result: 1= does not enter airway - Oral Phase Labial Seal: No Labial Escape Tongue Control During Bolus Hold: Posterior escape of less than half of bolus Bolus Preparation/Mastication: Timely and efficient chewing and mashing Bolus Transport/Lingual Motion: Brisk tongue motion Oral Residue: Trace residue lining oral structures - Pharyngeal Phase Initiation of Pharyngeal Swallow: Bolus head in pyriforms Soft Palate Elevation: Trace column of contrast/air between soft palate and pharyngeal wall Laryngeal Elevation: Comp. Superior move thyroid cart w/comp. apprx arytenoid cart-epig pet Anterior Hyoid Excursion: Complete anterior movement Laryngeal Vestibule Closure at Height of Swallow: Complete; no air/contrast in laryngeal vestibule Pharyngeal Stripping Wave: Present - complete Pharyngoesophageal Segment Opening: Complete distension and complete duration; no obstruction of flow Tongue Base Retraction: Trace column of contrast between tongue base & post. pharyngeal wall Pharyngeal Residue: Trace residue within or on pharyngeal structures - Esophageal Phase Esophageal Clearance: Esophageal retention w/ retrograde flow below pharyngoesophageal seg. - Diagnosis/Impression Diagnosis: Oropharyngeal swallow function grossly WNL, Esophageal dysphagia (R13.14) Impression: Overall oropharyngeal swallow function WNL. Mildly delayed swallow onset with thin liquids via straw. No aspiration or laryngeal penetration during the swallow. Trace oral and pharyngeal residues after the swallow. The esophageal phase is primarily marked by... -Esophageal retention most notable with pudding (SEE Figure 1). Pudding contrast somewhat cleared with use of thin liquid wash (SEE Figure 2); however, slow emptying of thin liquids in lower esophagus with retrograde flow observed. -Cricopharyngeal bar present at the level of C-6 to C-7 with concern for developing Zenker's diverticulum due to small, pouch-like collection of residue in upper esophagus (SEE Figure 3). Figure 1 - Esophageal screen of pudding via tsp. Figure 2- Esophageal screen of thin liquid wash via straw in attempt to clear pudding retention. Figure 3 - Upper esophageal retention observed during cookie trial. - Recommendations Diet: Regular Textures, Thin Liquids Compensatory Strategies: Small Bites, Small Sips, Slow Rate, Alternate bites/solids and sips/liquids, Sitting upright, Remain sitting upright for 30 minutes after PO intake Recommend Repeat Modified Barium Swallow: Yes Comment: Repeat MBS study in 6-12 months to monitor swallow function as the patient is at risk for worsening dysphagia and aspiration risk s/p radiation treatment. Need for Skilled Speech Therapy Services: No Comment: Pt to continue with home oropharyngeal exercise program 3-5X daily from OP speech therapy. Would recommend scheduling with CARDI[facility] SURGEON if pt is having increased difficulty with intake or poor adherence to home exercise program. Recommended Referrals: GI Consult - Concern for developing Zenker's diverticulum Education Completed: 1. Described result of evaluation., 2. Pt understands evaluation & agrees with goals and treatment plan., 5. Patient demonstrates recommended strategies. - Status Active ST Patient: Active - Contact Information [facility] Speech Therapy:: Nikki Alcantara M.A. [facility] Speech-Language Pathologist [facility] [address] [place] [address] [email or web address] [phone] 11/15/22 13:55
== END | disposition home or self-care (01) ==
LOC: RAD 12:57
PROVIDERS: PCP Family Medicine; Visit Provider Student in an Organized Health Care Education/Training Program
DX: C09.9 Malignant neoplasm of tonsil, unspecified (principal)
CPT/HCPCS: 74230; 92611

== ENCOUNTER 2022-12-14 06:42 | Day surgery (SDC) | payer OTHER, SELFPAY ==
--- NOTE | 2022-12-14 07:14 | HP.PCM_ITS ---
History and Physical Date of Admission: 12/14/22 Date of Service:? 12/05/22 MR#: [id number] Acct: [id number] Name:LEATHA HOGAN Rep #: [id number] : 1960 ? ? Provider: Dr. Shannon Drew MD Age/Sex:? 62/M ? ? Location[place] [facility] [place] Status: Signed Intake Intake Visit Reasons:?Remove peg/discuss c-scope Chief Complaint: remove peg Allergies No Known Allergies Allergy (Verified 12/01/22 14:40) PFSH Medical History? 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 H/O hernia repair H/O knee surgery Family History? Father Heart disease Hypertension High cholesterolMother CancerSister Cancer ?? ? skin Seizures Social History? household members:? spouse and children number of children:? 2 current occupational status:? 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 No pets and animals:? Yes Smoking Status:? Former smoker alcohol intake:? current alcohol intake frequency: holidays/special occasions only substance use type:? does not use HPI HPI HPI: 62-year-old male presents for PEG tube removal and discussion of colonoscopy due to abnormal PET scan.? Patient PET scan did show an area in the distal rectum/anus with enhancement.? Patient states that he thinks he does have some hemorrhoids and does occasionally have some leakage as well does not really have much pain or discomfort with this.? Patient had been dealing with constipation throughout treatment.? Patient states last time he used his PEG tube was 42 days ago.? Patient did hold his Eliquis for 3 days prior. ROS General General: No weight change, appetite, fatigue, colon cancer, breast cancer or weakness HEENT HEENT: No difficulty swallowing, eye injury, eye surgery, swollen glands or hoarseness Endo Endocrine: No thyroid disease, diabetes mellitus, thyroid cancer, Hair loss, heat intolerance or cold intolerance Skin Skin: No rash or changing moles Breast Breast: No left breast lump, right breast lump, nipple discharge, breast pain, abnormal mammogram, abnormal US or breast enlargement Musc Musculoskeletal: No back problems, arthritis, rheumatoid arthritis, gout or joint pain Cardio Cardiovascular: No murmur, pacemaker, heart disease, atrial fibrillation, high blood pressure, heart attack, heart stent, palpitations, shortness of breat with exertion or chest pain Psych Psychiatric: No depression, anxiety or hearing voices Resp Respiratory: No shortness of breath, No sleep apnea, No cough, No COPD, No asthma, No emphysema and No wheezing Gastro Gastrointestinal: No abdominal pain, No nausea or vomiting, No diarrhea, No constipation, No blood in stool, No acid reflux, No hemorrhoids, No ulcers, No gallbladder problem and No black,tarry stools Taye Hematologic: No blood thinners, No blood disorders, No bleeding, No anemia and No blood clots Neuro Neurologic: No system reviewed and no additional complaints, except as documented, No as per HPI, No abnormal gait, No abnormal hearing, No abnormal movements, No abnormal speech, No behavioral changes, No burning sensations, No confusion, No convulsions, No disequilibrium, No dizziness, No localized weakness, No frequent falls, No headache(s), No lack of coordination, No loss of vision, No memory loss, No numbness, No other visual disturbances, No radicular pain, No restless legs, No sensory deficit, No syncope, No tingling, No tremor(s), No weakness and No other Exam Const General: cooperative, healthy appearing, comfortable and no acute distress Neck Neck: normal visual inspection Resp Effort & Inspection: normal respiratory effort Cardio Rate: regular rate GI Inspection: non-distended Palpation: soft, no guarding and nontender Other: PEG tube in place.?Removed in office small amount of oozing 4 x 4 placed over top with tape AGGIE: Some excoriation of the perianal mucosa due to?? Leakage, no external hemorrhoids, internal hemorrhoid on exam no other masses felt on AGGIE, no gross blood. Skin General: no rashes or lesions noted Neuro General: patient oriented x3 Psych Affect: normal affect Assessment and Plan Assessment and Plan (1) PEG (percutaneous endoscopic gastrostomy) adjustment/replacement/removal: ?Status:?Acute (2) Abnormal gastrointestinal PET scan: ?Status:?Acute (3) Hx of colonic polyps: ?Status:?Acute (4) Internal hemorrhoids: ?Status:?Acute Plan Tolerated PEG tube removal in office well.? Patient did stop his Eliquis prior and we will plan to hold for today as well. Only internal hemorrhoids felt on AGGIE no evidence of other masses as seen on PET scan at anus.? PET scan personally reviewed.? Will prescribe hydrocortisone/lidocaine suppositories if that helps with his issues he is having with hemorrhoids he does not state they are very bothersome but he does have a small amount of leakage.? Patient's last colonoscopy was 4 to 5 years ago he did a polyp at that time we will plan for repeat colonoscopy as he will also be due shortly due to the history of polyps. I have discussed the above with the patient. I have offered the patient colonoscopy for evaluation. I have explained the risks/benefits of the procedure and described the procedure.? I have discussed the risks with the patient, including but not limited to:? infection, bleeding, perforation of the GI tract requiring emergency surgery, inability to complete the procedure, injury to any internal organs, complications of anesthesia, etc. - the patient understands and agrees to proceed. I have answered all the patient's questions to the patient's satisfaction and the patient has no further questions. The patient has been given instructions for the colon cleansing preparation.? 1 day of Ruperto edge to click split prep. Shannon Drew M.D. Pager: [phone] [facility] [address] [place] [address], [facility], [address] [place] [id number] Office: [phone] Coding Level of Care Code Off vis,est,level 4 Diagnoses PEG (percutaneous endoscopic gastrostomy) adjustment/replacement/removal? Z43.1 Abnormal gastrointestinal PET scan? R94.8 Hx of colonic polyps? Z86.010 Internal hemorrhoids? K64.8 12/05/22 1258 <Electronically signed by Shannon Drew MD> Date Shannon Drew MD
[2022-12-14] MEDS: Lactated Ringers 1,000 ML 15 ML IV (07:15)
[2022-12-14 07:17] VITALS: BP 145/83; PULSE 90; RESP 18; TEMP 36.7; O2SAT 100; BMI 29.9
--- NOTE | 2022-12-14 07:30 | COLBX_PTH ---
PATIENT: LEATHA ARENAS LOC: EN U#:[id number] AGE/SX: 62/M ROOM: RE12/14/[address]: Dr. Shannon Drew MD : 1960 BED: DIS: 12/14/2022 SPEC #: [id number] RECD: 12/14/22 11:42 STATUS: ROBB REJuan #: [id number] VIVIANA: 12/14/22 07:[address]: Shannon Drew DEPT: SURGICAL PATHOLOGY RECD BY: Amaris Murguia ENTERED: 12/14/22 12:53 SP TYPE: COLON BX OTHR DR: Dr. Jonny De MD Tissues: SPLENIC FLEXURE Procedures: Surgery Specimen Level IV HEADER OPERATION: Colonoscopy (MAC) PRE-OP DIAGNOSIS: PEG adjustment/replacement/removal, Abnormal GI PET scan, history of colonic polyps, internal hemorrhoids TISSUE SUBMITTED: Splenic flexure polyp biopsy MICROSCOPIC DIAGNOSIS Colonic polyp at splenic flexure, biopsy: Tubular adenoma. AM:bell 12/15/2022 MICROSCOPIC DESCRIPTION Slides are reviewed. GROSS DESCRIPTION Received in fixative is one container labeled with the patient's name and designated splenic flexure polyp. The specimen consists of multiple irregular fragments of light elizabeth soft tissue that in aggregate measure 1.0 x 0.2 x 0.1 cm. The specimen is totally submitted in one cassette. / AM:bell 12/14/2022 TC:5 CPT: 94346
[2022-12-14 08:02] VITALS: BP 112/73; BP 145/83; PULSE 74; RESP 18; TEMP 36.3; O2SAT 100
[2022-12-14 08:05] VITALS: BP 130/78; BP 145/83; PULSE 72; RESP 18; O2SAT 99
--- NOTE | 2022-12-14 08:08 | OP.COLON_ITS ---
Patient Name: Mars Steve Procedure Date: 12/14/2022 7:11 AM Date of : 1960 Age: 62 Procedure: Colonoscopy Indications: Abnormal PET scan of the GI tract Providers: Shannon Drew MD Referring MD: Shannon Drew MD Medicines: Monitored Anesthesia Care Patient Profile: This is a 62 year old male. Last Colonoscopy: 4 years ago--negative per pt. Previously obtained CT showed enhancement at rectum/anus on PET scan. Complications: No immediate complications. Procedure: Pre-Anesthesia Assessment: - Prior to the procedure, a History and Physical was performed, and patient medications and allergies were reviewed. The patient's tolerance of previous anesthesia was also reviewed. The risks and benefits of the procedure and the sedation options and risks were discussed with the patient. All questions were answered, and informed consent was obtained. Prior Anticoagulants: The patient has taken Eliquis (apixaban), last dose was 3 days prior to procedure. ASA Grade Assessment: Per anesthesia. After reviewing the risks and benefits, the patient was deemed in satisfactory condition to undergo the procedure. After I obtained informed consent, the scope was passed under direct vision. Throughout the procedure, the patient's blood pressure, pulse, and oxygen saturations were monitored continuously. The colonoscope was introduced through the anus and advanced to the cecum, identified by the appendiceal orifice, ileocecal valve and palpation. The colonoscopy was performed without difficulty. The patient tolerated the procedure well. The quality of the bowel preparation was good. Scope In: 7:29:27 AM Scope Withdrawal Time 0 hours 15 minutes 24 seconds Scope Out: 7:52:01 AM Total Procedure Duration Time 0 hours 22 minutes 34 seconds Findings: Perirectal abscess--Left side about 7:00 there was a fullness, which when palpated expressed purulent material into rectum/anus A less than 5 mm polyp was found in the splenic flexure. The polyp was sessile. The polyp was removed with a cold biopsy forceps. Resection and retrieval were complete. Multiple small and large-mouthed diverticula were found in the sigmoid colon, descending colon and transverse colon. The exam was otherwise without abnormality. Impression: - One less than 5 mm polyp at the splenic flexure, removed with a cold biopsy forceps. Resected and retrieved. - Diverticulosis in the sigmoid colon, in the descending colon and in the transverse colon. - The examination was otherwise normal. Recommendation: - Discharge patient to home. - Resume previous diet. - Continue present medications. - Resume Eliquis (apixaban) at prior dose tonight. - Augmentin (amoxicillin/clavulanate) 875 mg PO BID for 5 days for perirectal abscess - Repeat colonoscopy in 5 years [reason]. - Repeat colonoscopy is recommended for surveillance. The colonoscopy date will be determined after pathology results from today's exam become available for review. Procedure Code(s): --- Professional --- 55122, Colonoscopy, flexible; with biopsy, single or multiple Diagnosis Code(s): --- Professional --- D12.3, Benign neoplasm of transverse colon (hepatic flexure or splenic flexure) K57.30, Diverticulosis of large intestine without perforation or abscess without bleeding R93.3, Abnormal findings on diagnostic imaging of other parts of digestive tract CPT copyright 2017 [employer]. All rights reserved. The codes documented in this report are preliminary and upon machine filler servicer review may be revised to meet current compliance requirements. MD Shannon Ward MD 12/14/2022 8:08:08 AM This report has been signed electronically. Number of Addenda: 0 Note Initiated On: 12/14/2022 7:11 AM
--- NOTE | 2022-12-14 08:09 | OP.CCLET_ITS ---
12/14/2022 Jonny De Md Re : Colonoscopy procedure for Mars Zamorar Santino This procedure was performed on Wednesday, December 14, 2022. My impressions and recommendations are as follows: Impressions : - One less than 5 mm polyp at the splenic flexure, removed with a cold biopsy forceps. Resected and retrieved. - Diverticulosis in the sigmoid colon, in the descending colon and in the transverse colon. - The examination was otherwise normal. Recommendations : - Discharge patient to home. - Resume previous diet. - Continue present medications. - Resume Eliquis (apixaban) at prior dose tonight. - Augmentin (amoxicillin/clavulanate) 875 mg PO BID for 5 days for perirectal abscess - Repeat colonoscopy in 5 years [reason]. - Repeat colonoscopy is recommended for surveillance. The colonoscopy date will be determined after pathology results from today's exam become available for review. My findings are described in the full procedure note, which is enclosed. If I can be of further assistance, please feel free to contact me at Doctor phone number(s): , Work: . Sincerely, MD Shannon Ward MD 12/14/2022 8:08:08 AM This report has been signed electronically.
[2022-12-14 08:10] VITALS: BP 125/81; BP 145/83; PULSE 77; RESP 18; O2SAT 100
[2022-12-14 08:19] VITALS: BP 133/86; BP 145/83; PULSE 68; RESP 12; TEMP 36.2; O2SAT 100
[2022-12-14] MEDS: 0.9% Saline Lock 10 ML Syringe IV (08:22)
[2022-12-14 08:49] VITALS: BP 145/83
== END 2022-12-14 08:58 | disposition home or self-care (01) ==
LOC: EN 06:42 → AC 06:43
PROVIDERS: PCP Family Medicine; Referring Provider Surgery; Visit Provider Surgery
PROC: 0DJD8ZZ Inspection of Lower Intestinal Tract, Via Natural or Artificial Opening Endoscopic (ICD-10-PCS; CPT 45378; principal; 2022-12-14 07:25)
DX: D12.3 Benign neoplasm of transverse colon (principal); Z93.1 Gastrostomy status; I10 Essential (primary) hypertension; K57.30 Diverticulosis of large intestine without perforation or abscess without bleeding; Z86.16 Personal history of COVID-19; Z86.718 Personal history of other venous thrombosis and embolism; Z79.899 Other long term (current) drug therapy; Z79.01 Long term (current) use of anticoagulants; Z87.891 Personal history of nicotine dependence; Z86.010 Personal history of colon polyps
CPT/HCPCS: 45380; 88305; J7120; A4216

== ENCOUNTER 2022-12-15 07:31 | Outpatient (RCR) | payer OTHER, SELFPAY ==
--- NOTE | 2022-12-15 08:32 | HP.OTEVAL_ITS ---
Patient's Visit Information LEATHA ARENAS is a 62 year old M, referred to Occupational Therapy by Dr. Clifford Zhou, , with a diagnosis of lymphedema. Date of Evaluation: 12/15/22 Occupational Therapist: Michelle Victor, SHAQUILLE/Pawan, CHT - Subjective This 62 year old male was seen for OT eval with dx of Right tonsillar squamous cell carcinoma C09.9. Regional lymph node metastasis present C77.9. Pt noted mass in neck March 2022. pt states he has finished 33 treatments of radiation. pt states with his chemo and radiation no sx was needed to remove mass. pt states he started having swelling in 2021. also reports. Dry mouth and that is taste is off with some foods he eats. Pt denies pain. pt would like to know what he can do to help decrease his neck swelling. - Objective neck 45cm. head/chin 70cm circumference - Goals Demonstrate a 20% reduction in edema by d/c: Yes Demonstrate adequate knowledge of self-massage by 2nd week: Yes Demonstrate adequate knowledge skin care/prec by 2nd week: Yes Demonstrate adequate knowledge therapeutic exercises by d/c: Yes Select approp compression garment w/donning/care/wear by d/c: Yes Voice need to replace compression garment every 4-6mo by dc: Yes - Rehabilitation General Assessment: pt demo with signs of head/neck lymphedema and would benefit from skilled OT services 3-4 visits to establish home mtg. program for pt. Today therapist ed. pt on lymphedema and treatment options- pt is going to start with lymph stimulation ex, and self manual lymph massage. Pt also will get head/neck compression garment. pt will return for follow up to ensure proper ex/lymph massage josh and new measurements. Pt would benefit from head neck compression d evices (flexitouch) to ensure consistency with his self manual massage. pt receptive. Pt demo understanding and agree to POC. Rehabilitation Potential: Good - Anticipated Interventions Education re Diagnosis, Education re Life-long lymphedema Management, Education re Skin Care and Precautions, Education re Self Massage Techniques, Education re Correct Donning Tech,Care&Wearing Sched Comp Garments, Home Program - Visit Plan TEXT: Thank you for the opportunity to evaluate your patient. For Medicare and Medicare HMO plans, please review the plan of care and approve it. It will need to be FAXED BACK to us at [phone] for Medicare purposes. Please let me know if there are questions or concerns regarding this plan of care. Physician Signature: Date:
--- NOTE | 2023-04-07 09:46 | HP.OT.NRP ---
Patient Information Patient Information: LEATHA ARENAS was seen in my office for initial evaluation on 12/15/22. The following Plan of Care was established for this patient: Anticipated Interventions Anticipated Interventions: Education re Diagnosis, Education re Life-long lymphedema Management, Education re Skin Care and Precautions, Education re Self Massage Techniques, Education re Correct Donning Tech,Care&Wearing Sched Comp Garments and Home Program Last Seen Last Seen: This patient was last seen in our office 12/15/22. Pertinent comments regarding their Occupational therapy will appear below: pt was seen for eval only- no further apts scheduled and due to time lapse in services pt d/c. At this point I will be discontinuing this patient from occupational therapy. I would be happy to see this patient again in the future if found appropriate by the physician. Thank you! Michelle Victor, OTR/L, CHT
== END 2022-12-15 19:00 | disposition home or self-care (01) ==
LOC: OT 07:31
PROVIDERS: PCP Family Medicine; Visit Provider Student in an Organized Health Care Education/Training Program
DX: I89.0 Lymphedema, not elsewhere classified (principal)
CPT/HCPCS: 97166; 97530

== ENCOUNTER → 2024-04-02 | Outpatient (CLI) | payer OTHER, SELFPAY ==
--- NOTE | 2024-04-02 12:09 | ST.MBS ---
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 From 07/13/2022 ? 08/25/2022 he completed definitive chemoradiation. PEG tube was placed 07/07/2022 and was removed following chemoradiation treatment once the patient resumed full oral intake. He followed with OP ST during and after chemoradiation treatment to address pharyngeal dysphagia. He has participated in 2 previous MBSS (07/05/2023, 11/15/2022). Most recent MBSS 11/15/2022 revealed oropharyngeal swallow function WNL with esophageal dysphagia. No GI follow up was reported. Pt was recommended Regular textures / Thin liquids with use of aspiration and reflux precautions. Currently, he reports only occasional sensation of retention of foods in throat, which he attributes to mild xerostomia. He uses liquid wash to clear this sensation. Current Diet Ordered: Regular textures / Thin liquids Dentition: WNL and Natural Teeth Mental Status: WNL Respiratory Status: Oxygenating on Room Air Penetration-Aspiration Scale Penetration-Aspiration Scale: OBJECTIVE ASSESSMENT OF SWALLOW FUNCTION (QUANTITATIVE ? PER TRIAL): PENETRATION / ASPIRATION SCALE (YU): 1 = does not enter airway 2 = enters airway/above vocal folds/ejected 3 = enters airway/above vocal folds/not ejected 4 = enters airway/contacts vocal folds/ejected 5 = enters airway/contacts vocal folds/not ejected 6 = enters airway/below vocal folds/ejected 7 = enters airway/below vocal folds/not ejected despite effort 8 = enters airway/below vocal folds/no effort VIDEOFLOROSCOPIC SCALE SCORE (YU): Grade I = aspiration of material that has penetrated into the laryngeal vestibule, intact cough reflex Grade II = aspiration < 10 % of the bolus, intact cough reflex Grade III = aspiration of < 10 % of the bolus, reduced cough reflex or aspiration of > 10 % of the bolus, intact cough reflex Grade IV = aspiration of > 10 % of the bolus, reduced cough reflex Penetration-Aspiration Scale Score Thin Liquid via teaspoon: Result: 1= does not enter airway Thin Liquid via teaspoon Trial 2: Result: 1= does not enter airway Thin Liquid via large single sip: cup: Result: 1= does not enter airway [place] Thick Liquid via large single sip: cup: Result: 1= does not enter airway Pudding via teaspoon: Result: 1= does not enter airway Comment: Esophageal screen - Mild retention of pudding in mid esophagus. / Cookie: Result: 1= does not enter airway Thin Liquid via sequential sips:straw: Result: 1= does not enter airway Oral Phase Labial Seal: No Labial Escape Tongue Control During Bolus Hold: Posterior escape of greater than half of bolus Bolus Preparation/Mastication: Timely and efficient chewing and mashing Bolus Transport/Lingual Motion: Delayed initiation of tongue motion Oral Residue: Residue collection on oral structures Pharyngeal Phase Initiation of Pharyngeal Swallow: Bolus head in pyriforms Soft Palate Elevation: Trace column of contrast/air between soft palate and pharyngeal wall Laryngeal Elevation: Comp. Superior move thyroid cart w/comp. apprx arytenoid cart-epig pet Anterior Hyoid Excursion: Partial anterior movement Epiglottic Movement: Complete inversion Laryngeal Vestibule Closure at Height of Swallow: Complete; no air/contrast in laryngeal vestibule Pharyngeal Stripping Wave: Present - complete Pharyngoesophageal Segment Opening: Parital distension and partial duration; parital obstruction of flow Tongue Base Retraction: Trace column of contrast between tongue base & post. pharyngeal wall Pharyngeal Residue: Trace residue within or on pharyngeal structures Esophageal Phase Esophageal Clearance: Esophageal retention (Mild retention of pudding in mid esophagus. Trace retention of thin liquids in upper esophagus.) Diagnosis/Impression Diagnosis: Oropharyngeal swallow grossly WNL; Mild esophageal dysphagia R13.14 Impression: Oropharyngeal swallow function grossly WNL. Posterior loss of various bolus to the pyriforms. Mild oral residue, which fully cleared with independent initiaton of additional swallows as needed. Mildly delayed swallow onset. No laryngeal penetration or aspiration. Trace pharyngeal residues. The esophageal phase is primarily marked by... -Mild retention of pudding in mid esophagus. -Trace retention of thin liquids in upper esophagus. Patient had less esophageal retention as compared to previous MBSS and is reporting no major concerns for reflux or retrograde flow of food/drink. Will continue to monitor esophageal phase of the swallow in upcoming MBSS. No GI consult warranted at this time. Recommendations Diet: Regular Textures and Thin Liquids Compensatory Strategies: Small Bites, Small Sips, Slow Rate, Alternate bites/solids and sips/liquids, Sitting upright and Remain sitting upright for 30 minutes after PO intake Recommend Repeat Modified Barium Swallow: Yes Comment: Plan for repeat MBSS in 6-12 months to continue to monitor swallow function s/p radiation, as pt is at increased risk for worsening dysphagia and aspiration risk related to superintendent terminal effects of radiation. Need for Skilled Speech Therapy Services: No Comment: No follow-up dysphagia therapy recommended at this time. GUIDE FOREIGN TOUR recommended re-starting home oropharyngeal exercise program to decrease risk for worsening swallow function s/p chemoradiation treatment for R tonsillar SCC. Pt verbalized understanding, stated he still had home exercise program, and that he did not require additional instruction re: home exercise program. Collection of barium in upper esophagus appears smaller as compared to previous study. Will continue to monitor in future MBSS. Education Completed: 1. Described result of evaluation. Status Active ST Patient: Active Contact Information [facility] Speech Therapy:: Nikki Alcantara M.A. [facility]-[employer]? Speech-Language Pathologist?? [facility] [address] [place] [address]? [email or web address]?? [phone]
== END | disposition home or self-care (01) ==
LOC: RAD 09:23
PROVIDERS: PCP Family Medicine; Referring Provider Student in an Organized Health Care Education/Training Program; Visit Provider Student in an Organized Health Care Education/Training Program
DX: R13.10 Dysphagia, unspecified (principal); C09.9 Malignant neoplasm of tonsil, unspecified
CPT/HCPCS: 74230; 92611

== ENCOUNTER → 2025-04-15 | Outpatient (CLI) | payer OTHER, SELFPAY ==
--- NOTE | 2025-04-15 11:28 | ST.MBS ---
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 From 07/13/2022 ? 08/25/2022 he completed definitive chemoradiation.? PEG tube was placed 07/07/2022 and was removed following chemoradiation treatment once the patient resumed full oral intake. He followed with OP ST during and after chemoradiation treatment to address pharyngeal dysphagia. He has participated in 3 previous MBSS (07/05/2023, 11/15/2022, 04/02/2024). Most recent MBSS 04/02/2024 revealed oropharyngeal swallow function WNL with esophageal dysphagia. No GI follow up at this time. Currently, he reports no swallowing difficulty, no odynophagia, no dysgeusia, and only mild xerostomia. Current Diet Ordered: Regular textures / Thin liquids Dentition: WNL and Natural Teeth Mental Status: WNL Respiratory Status: Oxygenating on Room Air Penetration-Aspiration Scale Penetration-Aspiration Scale: OBJECTIVE ASSESSMENT OF SWALLOW FUNCTION (QUANTITATIVE ? PER TRIAL): PENETRATION / ASPIRATION SCALE (YU): 1 = does not enter airway 2 = enters airway/above vocal folds/ejected 3 = enters airway/above vocal folds/not ejected 4 = enters airway/contacts vocal folds/ejected 5 = enters airway/contacts vocal folds/not ejected 6 = enters airway/below vocal folds/ejected 7 = enters airway/below vocal folds/not ejected despite effort 8 = enters airway/below vocal folds/no effort VIDEOFLOROSCOPIC SCALE SCORE (YU): Grade I = aspiration of material that has penetrated into the laryngeal vestibule, intact cough reflex Grade II = aspiration < 10 % of the bolus, intact cough reflex Grade III = aspiration of < 10 % of the bolus, reduced cough reflex or aspiration of > 10 % of the bolus, intact cough reflex Grade IV = aspiration of > 10 % of the bolus, reduced cough reflex Penetration-Aspiration Scale Score Thin Liquid via teaspoon: Result: 1= does not enter airway Thin Liquid via teaspoon Trial 2: Result: 1= does not enter airway Thin Liquid via small single sip: cup: Result: 1= does not enter airway Thin Liquid via sequential sips: cup: Result: 1= does not enter airway [place] Thick Liquid via large single sip: cup: Result: 1= does not enter airway Pudding via teaspoon: Result: 1= does not enter airway Comment: Esophageal screen - Complete clearance. 1/2 Cookie: Result: 1= does not enter airway Comment: Esophageal screen - Retention of cookie throughout the esophagus. Thin Liquid via single sip: straw: Result: 1= does not enter airway Comment: Esophageal screen - Retention of cookie mostly cleared w/ single liquid wash. Mild retention of cookie remained in the middle/upper esophagus. Oral Phase Labial Seal: No Labial Escape Tongue Control During Bolus Hold: Posterior escape of less than half of bolus Bolus Preparation/Mastication: Timely and efficient chewing and mashing Bolus Transport/Lingual Motion: Brisk tongue motion Oral Residue: Residue collection on oral structures Pharyngeal Phase Initiation of Pharyngeal Swallow: Bolus head at posterior laryngeal surgace of epiglottis Soft Palate Elevation: Trace column of contrast/air between soft palate and pharyngeal wall Laryngeal Elevation: Comp. Superior move thyroid cart w/comp. apprx arytenoid cart-epig pet Anterior Hyoid Excursion: Complete anterior movement Epiglottic Movement: Complete inversion Laryngeal Vestibule Closure at Height of Swallow: Complete; no air/contrast in laryngeal vestibule Pharyngeal Stripping Wave: Present - complete Pharyngoesophageal Segment Opening: Parital distension and partial duration; parital obstruction of flow (trace retention of pudding in UES) Tongue Base Retraction: Trace column of contrast between tongue base & post. pharyngeal wall Pharyngeal Residue: Trace residue within or on pharyngeal structures Esophageal Phase Esophageal Clearance: Esophageal retention (Retention of cookie throughout the esophagus) Diagnosis/Impression Diagnosis: Oropharyngeal swallow grossly WNL; Mild esophageal dysphagia R13.14 MBS Impressions: Oropharyngeal swallow function grossly WNL. The esophageal phase is primarily marked by... -Minimal retention of liquids in the upper esophagus. -Esophageal retention of cookie throughout the esophagus, which mostly cleared w/ a liquid wash. Mild retention of cookie remained in the middle/upper esophagus. Recommendations Diet: Regular Textures and Thin Liquids Compensatory Strategies: Small Bites, Small Sips, Slow Rate, Alternate bites/solids and sips/liquids, Sitting upright and Remain sitting upright for 30 minutes after PO intake Recommend Repeat Modified Barium Swallow: Yes Comment: Plan for repeat MBSS in 6-12 months to continue to monitor swallow function s/p radiation, as pt is at increased risk for worsening dysphagia and aspiration risk related to manager terminal effects of radiation. Need for Skilled Speech Therapy Services: No Comment: Continue maintenance home oropharyngeal exercise program. Recommended Referrals: GI Consult (Would recommend discussing consideration for GI consult w/ PCP, especially if pt experiences sensation of retention or regurgitation of foods or if pt experiences increased s/s of reflux.) Education Completed: 1. Described result of evaluation. Status Active ST Patient: Active Contact Information [facility] Speech Therapy:: Nikki Alcantara M.A. [employer]? Speech-Language Pathologist?? [facility] [address] [place] [address]? [email or web address]?? [phone]
== END | disposition home or self-care (01) ==
LOC: RAD 09:31
PROVIDERS: PCP Family Medicine; Referring Provider Student in an Organized Health Care Education/Training Program; Visit Provider Student in an Organized Health Care Education/Training Program
DX: C09.9 Malignant neoplasm of tonsil, unspecified (principal)
CPT/HCPCS: 74230; 92611